=== PATIENT | male | born 1985 | race Caucasian/White ===

== ENCOUNTER 2023-11-03 10:04 | Emergency (ER) | payer MEDICARE, MEDICAID, SELFPAY ==
--- NOTE | 2023-11-03 10:12 | ED.EYEPROB ---
HPI - Eye Problem General Chief complaint: Eye Problems Stated complaint: Eyes Irritation Time Seen by Provider: 11/03/23 10:05 Source: patient Mode of arrival: ambulatory Limitations: no limitations History of Present Illness HPI Narrative: Prakash is a 38-year-old male patient presenting to the clinic today with complaints of left eye irritation/pain. He reports thinks he may have gotten some thin in his left eye this morning when he was cleaning. States that he took his contact out. Is having pain to the upper eyelid and to the eye itself. Related Data Allergies Allergy/AdvReac Type Severity Reaction Status Date / Time amoxicillin Allergy Severe Swelling Verified 11/03/23 10:26 of Lip/Tongue/Throat Penicillins Allergy Severe Swelling Verified 11/03/23 10:26 of Lip/Tongue/Throat povidone-iodine Allergy Unknown Swelling Verified 11/03/23 10:26 of Lip/Tongue/Throat KETOROLAC TROMETHAMINE Allergy Severe Swelling Uncoded 11/03/23 10:26 of Lip/Tongue/Throat Review of Systems Review of Systems: Pertinent positives per HPI. Patient denies any fever, chills, rash, headache, visual changes, dizziness, cough, runny nose, sore throat, shortness of breath, chest pain, palpitations, nausea, vomiting, diarrhea, constipation, abdominal pain, or any urinary issues. PMFSH Comments At the time of my signature, I reviewed and agree with the nursing past medical, surgical, social, and family history. There is no relevant family history pertinent to the patient complaint. Exam Narrative: General: Well-developed, well nourished, in no apparent distress Head: Normocephalic, atraumatic Eyes: Pupils equally round and reactive to light bilaterally, EOM intact, sclera and conjunctive clear, lids normal, left eye watering, Wood's lamp exam was performed and a corneal abrasion was seen at the mid lateral left eye Ears: TMs intact and clear, ear canals clear, no drainage, grossly hearing normal. Nose: Nares patent, no discharge, no inflammation, no sinus tenderness. Mouth: Oropharynx without lesions or masses, good dentition, MMM. Neck: Supple, trachea midline, no enlargement of anterior or posterior cervical nodes, no thyroid masses or goiter palpable. Cardio: Regular rate and rhythm, s1 and s2 normal, no murmur appreciated. Resp: Clear to auscultation bilaterally anteriorly and posteriorly, no rhonchi, rales, wheezing or rubs Course Course Emergency Course: Portions of this record may have been created with voice recognition software. Level of Care: Express Care Visit Vital Signs Vital signs: Vital Signs Temperature 36.6 C 11/03/23 10:18 Pulse Rate 99 11/03/23 10:18 Respiratory Rate 16 11/03/23 10:18 Blood Pressure 125/80 11/03/23 10:18 Pulse Oximetry 99 11/03/23 10:18 Oxygen Delivery Room Air 11/03/23 10:18 Temperature 36.6 C 11/03/23 10:18 Pulse Rate 99 11/03/23 10:18 Respiratory Rate 16 11/03/23 10:18 Blood Pressure 125/80 11/03/23 10:18 Pulse Oximetry 99 11/03/23 10:18 Oxygen Delivery Room Air 11/03/23 10:18 Vital signs reviewed Procedures Other Procedure Procedure 1: Other Procedure: Topical anesthetic was instilled with good anesthesia using 1gtt of opth anesthetic agent (tetracaine). Fluorescein stain of the left eye was performed. Patient has a corneal abrasion to the mid left lateral eye. NO FB, ulcer or dendritic lesions. Upper lid was everted and no FB or lesions were noted. NO Nabor sign. Normal saline irrigation eye solution was performed and the patient tolerated the procedure well, no adverse reaction or complications. MDM - Eye Problem MDM Narrative Medical decision making narrative: At the time of visit patient is resting comfortably on the exam table. Patient appears to be nontoxic. Procedures: Wood's lamp exam was performed and a corneal abrasion is visualized to the mid lateral left eye. Plan:
[2023-11-03 10:18] VITALS: BP 125/80; PULSE 99; RESP 16; TEMP 36.6; O2SAT 99
[2023-11-03] MEDS: TETRACAINE HCL 0.5% OPHTH SOLN 4 ML BTL 1 DROP EACH EYE (10:37)
[2023-11-03] MEDS: FLUORESCEIN SOD 1 MG/STRIP LEFT EYE (10:37)
[2023-11-03] MEDS: DACRIOSE EYE IRRIGATION 118 ML BOTTLE LEFT EYE (10:38)
== END 2023-11-03 10:45 | disposition home or self-care (01) ==
PROVIDERS: Emergency Provider Nurse Practitioner Family
DX: S05.02XA Injury of conjunctiva and corneal abrasion without foreign body, left eye, initial encounter (principal); X58.XXXA Exposure to other specified factors, initial encounter; I50.9 Heart failure, unspecified; Z90.5 Acquired absence of kidney
CPT/HCPCS: 99203; A9270; G0463